=== PATIENT | female | born 1960 | race Caucasian/White ===

== ENCOUNTER 2018-10-03 12:11 | Emergency (ER) | payer BC ==
[~2018-10-03] VITALS: Ht 160 cm; Wt 65.8 kg
[~2018-10-03 12:11] MED LIST: CYCL-97 PO; DULO60CA6 PO; HYDR-3720 PO; NAPR220C11 PO; TRAM100T2 PO
--- OUTSIDE RECORDS SUMMARY | 2018-10-03 12:17 | XMS REPORT | Continuity of Care Document ---
Author Organization Unknown Address Unknown Allergies Active Description Code Type Severity Reaction Onset Reported/Identified Relationship to Patient Clinical Status Yes Bactrim Drug N/A Nausea Yes PriLOSEC Drug N/A BRITTON - Headache Medications Medication Packaging Start Date Stop Date Route Dosage Sig DULoxetine 05/12/2018 PO Cymbalta traMADol 05/12/2018 PO 50 mg / 1 tab ibuprofen 05/12/2018 ibuprofen Problems Date Dx Coded Attending Type Code Diagnosis Diagnosed By 05/12/2018 Paula Pinzon Final M54.5 Low back pain Procedures There is no data. Results There is no data. Encounters ACCT No. Visit Date/Time Discharge Status Pt. Type Provider Facility Loc./Unit Complaint [id number] 06/03/2018 13:29:38 06/03/2018 23:59:59 [facility] Outpatient Fadi Griffith [facility] MRI F/U-Discuss surgery [id number] 06/02/2018 13:55:00 06/02/2018 23:59:59 [facility] [id number] 05/25/2018 00:00:00 05/25/2018 23:59:59 [facility] Outpatient Scanned Documents [id number] 05/12/2018 10:24:52 05/12/2018 23:59:59 [facility] Outpatient Fadi Griffith [facility] 2nd opinion - foot drop/IMAGES FIRST [id number] 05/11/2018 17:37:00 05/11/2018 23:59:59 [facility] Outpatient [id number] 05/04/2018 00:00:00 05/04/2018 23:59:59 [facility] Outpatient Scanned Documents [id number] 05/12/2018 10:03:00 05/12/2018 23:59:00 [facility] Outpatient Paula Pinzon [facility] RAD SPINE XRAY [id number] 08/19/2018 10:00:00 08/19/2018 23:59:59 [facility] Outpatient ODILIA WHITE [facility]
--- NOTE | 2018-10-03 12:38 | ED Lower Extremity ---
General Chief Complaint: Lower Extremity Stated Complaint: FALL - LT FOOT INJURY Nursing Triage Note: PT REPORTS SHE STEPPED WRONG LAST PM AT HER SONS CONCERT AND NOW HER LEFT FOOT HURTS TO MOVE OR AMBULATE. NO SIGNIFICANT SWELLING NOTED Nursing Sepsis Screen: No Definite Risk Source: patient Exam Limitations: no limitations History of Present Illness Date Seen by Provider: Oct 03, 2018 Time Seen by Provider: 12:35 Initial Comments Twisted left foot when she stepped wrong last night. Complains of pain swelling and tenderness. Hurts to bear weight. Allergies and Home Medications Allergies Coded Allergies: omeprazole (Unverified Allergy, HEAD ACHE, 05/12/12) omeprazole magnesium (Unverified Allergy, HEAD ACHE, 05/12/12) Home Medications Cyclobenzaprine Hcl 10 Mg Tablet, 1 TAB PO TID PRN, (Reported) Duloxetine Hcl 60 Mg Capsule.dr, 1 EACH PO DAILY, (Reported) Hydrocodone Bit/Acetaminophen 1 Ea Tab, 1-2 EA PO Q4HR PRN, (Reported) Naproxen Sodium 220 Mg Capsule, 220 MG PO DAILY, (Reported) DO NOT RESUME UNTIL 05/27/12 Tramadol Hcl 100 Mg Tab.sr.24h, 100 MG PO NEEDED, (Reported) FOR PAIN Patient Home Medication List Home Medication List Reviewed: Yes Review of Systems Constitutional: no symptoms reported Musculoskeletal: joint pain Skin: no symptoms reported Past Xzcolfm-Qgafwh-Qhndzm Hx Patient Social History Recent Foreign Travel: No Contact w/Someone Who Travel: No Recent Infectious Disease Expo: No Physical Abuse: No Sexual Abuse: No Mistreated: No Fear: No Past Medical History Reproductive Disorders: No Physical Exam Vital Signs Vital Signs - First Documented 10/03/18 12:21 Temp 99.0 Pulse 89 B/P (MAP) 137/81 (99) Capillary Refill : Less Than 3 Seconds Height, Weight, BMI Height: 5'3.00" Weight: 145lbs. oz. [id number]; BMI Method:Stated General Appearance: WD/WN, no apparent distress Neck: supple Cardiovascular: regular rate, rhythm Respiratory: lungs clear Feet: left foot pain, left foot soft tissue tenderness (tender swollen over dorsuml aspect of left foot. No obvious deformity. unable to bear weight) Neurologic/Psychiatric: alert, normal mood/affect Skin: normal color, warm/dry Progress/Results/Core Measures Results/Orders My Orders Orders - HENRY ROMEO MD Foot 3 View Left (10/03/18 12:26) Vital Signs/I&O 10/03/18 12:21 Temp 99.0 Pulse 89 B/P (MAP) 137/81 (99) Blood Pressure Mean: 99 Progress Progress Note : Time: 12:59 Progress Note X-ray reviewed. Concerns over Lisfranc joint injury. Advised follow-up with orthopedist as soon as possible. No weight bearing. Departure Impression Primary Impression: Metatarsal fracture Disposition: HOME, SELF-CARE Condition: Stable Departure-Patient Inst. Decision time for Depature: 12:37 Referrals: ODILIA WHITE MD (PCP) Primary Care Physician Patient Instructions: Foot Fracture (DC) Add. Discharge Instructions: No weightbearing. Instructions. Keep foot elevated as much as possible. See orthopedist this week for follow-up. Take your x-ray and report with you. All discharge instructions reviewed with patient and/or family. Voiced understanding. HENRY ROMEO MD Oct 03, 2018 12:37
--- NOTE | 2018-10-03 12:47 | Diagnostic Imaging Report ---
Clinical indication: Patient stepped wrong last night at her son's concert and now left foot hurts to move and ambulate. Exam: X-ray of the left foot, 3 views. Comparison: None. Findings: There are nondisplaced transverse fractures involving the proximal metaphysis of the third and fourth metatarsal bones. There may be mildly displaced fracture fragment dorsally on the lateral view. There is no other fracture or dislocation. Remainder of the left foot is unremarkable. Impression: There are fractures of the proximal metaphysis of the third and fourth metatarsal bones. Dictated by: Dictated on workstation # [id number]
[2018-10-03 13:03] VITALS: BP 121/62
== END 2018-10-03 13:16 | disposition home or self-care (01) ==
LOC: EDUNIT# 12:11 → ER FS 12:13 → ER 13:16
DX: S92.332A Displaced fracture of third metatarsal bone, left foot, initial encounter for closed fracture (principal); S92.342A Displaced fracture of fourth metatarsal bone, left foot, initial encounter for closed fracture; Z88.8 Allergy status to other drugs, medicaments and biological substances; X58.XXXA Exposure to other specified factors, initial encounter
CPT/HCPCS: 73630

== ENCOUNTER → 2018-10-13 | Outpatient (CLI) | payer BC ==
--- NOTE | 2018-10-13 11:16 | Diagnostic Imaging Report ---
PROCEDURE: CT left lower extremity without contrast. TECHNIQUE: Multiple contiguous axial images were obtained through the left lower extremity without the use of intravenous contrast. Sagittal and coronal reformations were then performed. Auto Exposure Controls were utilized during the CT exam to meet ALARA standards for radiation dose reduction. INDICATION: Nondisplaced fracture of third and fourth metatarsals. There are no prior CT examinations available for comparison. FINDINGS: The left foot exam of 10/03/2018 noted fractures of the proximal metaphyses of the third and fourth metatarsals. On this study, the fractures are again evident. The sagittal images do show that the fractures of the base of the third and fourth metatarsals are slightly displaced. There is also a nondisplaced fracture of the medial cortex of the base of second metatarsal. There also appears to be a nondisplaced fracture of the lateral aspect of the base of first metatarsal along the plantar surface. In addition to the fractures of the metatarsals there are do appear to be a few small avulsion fractures along the lateral aspect of the first cuneiform (axial images 104-115 of 213). These minute fracture fragments are in the region of the attachment of the Lisfranc ligament. The ligament itself is not well visualized. However, the avulsion fractures in this area do suggest that the attachment of the ligament is probably partially torn. The Lisfranc joint itself seems to be fairly well-maintained. No other fracture or acute bony abnormality identified. Is identified. There is no sign of a dislocation either. There is soft tissue edema along the dorsum of the forefoot in the region of the fractures. IMPRESSION: 1. There are slightly displaced fractures of the bases of the third and fourth metatarsals and nondisplaced fractures of the bases of the second and first metatarsals. 2. There also appear to be small avulsion fractures along the lateral aspect of the first cuneiform. These fractures are in the region of the attachment of the Lisfranc ligament. The ligament itself is not well visualized but the avulsion fractures in this area are indirect evidence that the ligament is probably partially torn. If further imaging is desired, then MRI would be recommended. 3. There is no acute bony abnormality noted otherwise. 4. These results were discussed with Dr. Silva. Dictated by: Dictated on workstation # [id number]
== END ==
LOC: RAD FS 09:59
PROVIDERS: ATTEND Nurse Practitioner
DX: S92.325A Nondisplaced fracture of second metatarsal bone, left foot, initial encounter for closed fracture (principal); S92.315A Nondisplaced fracture of first metatarsal bone, left foot, initial encounter for closed fracture; S92.342A Displaced fracture of fourth metatarsal bone, left foot, initial encounter for closed fracture; S92.335A Nondisplaced fracture of third metatarsal bone, left foot, initial encounter for closed fracture
CPT/HCPCS: 73700

== ENCOUNTER → 2020-01-06 | Outpatient (CLI) | payer BC ==
--- NOTE | 2020-01-06 10:10 | Diagnostic Imaging Report ---
PROCEDURE: MRI lumbar spine. TECHNIQUE: Multiplanar, multisequence MRI of the lumbar spine was performed without contrast. DATE: January 06, 2020. COMPARISON: Lumbar spine radiographs May 19, 2012. INDICATION: 59-year-old female, increasing low back pain. FINDINGS: S1-S2 is labeled as having a rudimentary disc. If spinal intervention is to be performed in the future, recommend careful correlation with levels. There is posterior spinal fusion hardware spanning L4-L5 with disc spacer material. There is some associated hardware related artifact. There is grade 1 anterolisthesis of L3 on L4 which measures 6.6 mm. There is no evidence of a diffuse marrow infiltrating or replacing process. There is mild to moderate disc height loss at L3-L4. There is severe disc height loss at L4-L5. There are Modic endplate degenerative changes at both these levels although more notable at L5-S1. There is a superior endplate Schmorl's node of T12. There is no acute compression deformity or other acute fracture. There is no focal concerning bone lesion. The visualized cord and conus medullaris is unremarkable and terminates at the L2-L3 level. At T11-T12, there is a mild diffuse disc bulge without foraminal or spinal stenosis. L1-L2: There is no disc bulge. The facet joints and ligamentum flavum are unremarkable. There is no foraminal narrowing. There is no spinal canal stenosis. L2-L3: There is mild diffuse disc bulge. The facet joints and ligamentum flavum are unremarkable. There is mild bilateral foraminal narrowing. There is no spinal canal stenosis. L3-L4: There is diffuse disc bulge. There are advanced bilateral facet degenerative changes with ligamentum flavum hypertrophy. There is severe narrowing of the right lateral recess and moderate narrowing of the left lateral recess. There is moderate bilateral foraminal narrowing. There is severe spinal canal stenosis. L4-L5: There is no disc bulge. There are bilateral laminectomy changes. There is no foraminal narrowing. There is no spinal canal stenosis. L5-S1: There is diffuse disc bulge. There are bilateral facet degenerative changes without prominent ligamentum flavum hypertrophy. There is severe right and mild to moderate left foraminal narrowing. There is no high-grade spinal canal stenosis. IMPRESSION: 1. S1-S2 is labeled as having a rudimentary disc. If spinal intervention is to be performed in the future, recommend careful correlation with levels. 2. Postoperative changes spanning L4-L5. 3. Disc and facet degenerative changes of the lumbar spine as described in detail level by level above. Findings are most notable at L3-L4, L5-S1, and L2-L3. Dictated by: Dictated on workstation # [id number]
== END ==
LOC: RAD 08:57
PROVIDERS: ATTEND Family Medicine
DX: M51.17 Intervertebral disc disorders with radiculopathy, lumbosacral region (principal); M47.27 Other spondylosis with radiculopathy, lumbosacral region; M48.07 Spinal stenosis, lumbosacral region; M43.16 Spondylolisthesis, lumbar region; M51.44 Schmorl's nodes, thoracic region; Z98.1 Arthrodesis status
CPT/HCPCS: 72148

== ENCOUNTER 2020-03-15 21:20 | Emergency (ER) | payer BC ==
[~2020-03-15] VITALS: Ht 157.4 cm; Wt 66.5 kg
[2020-03-15 21:51] LABS: HEMATOCRIT 41 % (35-52); HEMOGLOBIN 14.4 G/DL (11.5-16.0); MEAN CORPUSCULAR HEMOGLOBIN 31 PG (25-34); MEAN CORPUSCULAR VOLUME 90 FL (80-99); WHITE BLOOD COUNT 9.1 10^3/uL (4.3-11.0)
[2020-03-15 21:52] LABS: BASOPHILS % (AUTO) 0 % (0-10); EOSINOPHILS % (AUTO) 0 % (0-10); LYMPHOCYTES % (AUTO) 8 % (12-44); MEAN CORPUSCULAR HGB CONC 35 G/DL (32-36); MEAN PLATELET VOLUME 9.8 FL (7.4-10.4); MONOCYTES % (AUTO) 1 % (0-12); PLATELET COUNT 350 10^3/uL (130-400)
--- NOTE | 2020-03-15 21:52 | ED Chest Pain ---
General Stated Complaint: SOA,HIGH BLOOD PRESSURE/HEARTRATE Source: patient History of Present Illness Date Seen by Provider: Mar 15, 2020 Time Seen by Provider: 21:37 Initial Comments 59-year-old female presents with intermittent shortness of air multiple somatic complaints occurring over the past several days. Tonight concern of rapid heart rate as well as increased blood pressure. Saw her PCP today, Dr. Valdez for possible temporal arteritis or shingles. 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 She does not have a rash but is having intermittent scalp tingling with no localized area, but occurring in the migratory pattern. Did have some tenderness of her left temporal area, which is calm and gone as well. Currently not having any of those symptoms. Denies chest pain or shortness of air on arrival, but is having rapid heart rate as well as some anxiety. She did take a Xanax 0.25 about 9 p.m. prior to arrival. She also filled and took 40mg of her prednisone at 4 pm for the presumed herpes zoster (although she has no rash), she did not fill the prescription for Zostrix. She denies any eye pain or visual change. She denies any jaw pain or claudication. Allergies and Home Medications Allergies Coded Allergies: omeprazole (Unverified Allergy, HEAD ACHE, 05/12/12) omeprazole magnesium (Unverified Allergy, HEAD ACHE, 05/12/12) Home Medications Cyclobenzaprine Hcl 10 Mg Tablet, 1 TAB PO TID PRN, (Reported) Duloxetine Hcl 60 Mg Capsule.dr, 1 EACH PO DAILY, (Reported) Hydrocodone Bit/Acetaminophen 1 Ea Tab, 1-2 EA PO Q4HR PRN, (Reported) Naproxen Sodium 220 Mg Capsule, 220 MG PO DAILY, (Reported) DO NOT RESUME UNTIL 05/27/12 Tramadol Hcl 100 Mg Tab.sr.24h, 100 MG PO NEEDED, (Reported) FOR PAIN Patient Home Medication List Home Medication List Reviewed: Yes Review of Systems Review of Systems Constitutional: No dizziness, No fever, No malaise, No weakness Respiratory: Denies Cough, Denies Orthopnea; Shortness of Air (intermittent, mainly w exertion); Denies Stridor, Denies Wheezing Cardiovascular: See HPI; Denies Chest Pain, Denies Edema, Denies Lightheadedness; Palpitations; Denies Syncope Gastrointestinal: No Symptoms Reported; Denies Nausea, Denies Poor Fluid Intake, Denies Vomiting Musculoskeletal: No back pain, No joint pain Skin: No change in color, No rash Psychiatric/Neurological: Anxiety; Denies Depressed, Denies Headache, Denies Numbness; Paresthesia (of scalp) Past Jpisznz-Ihjhxr-Uncmrg Hx Past Med/Social Hx: Reviewed Nursing Past Med/Soc Hx Patient Social History Alcohol Use: Regular Use 2nd Hand Smoke Exposure: No Recent Foreign Travel: No Contact w/Someone Who Travel: No Recent Hopitalizations: No Seasonal Allergies Seasonal Allergies: No Past Medical History Surgeries: Yes Gallbladder, Hysterectomy, Orthopedic Respiratory: No Cardiac: No Neurological: No Reproductive Disorders: No Genitourinary: No Gastrointestinal: No Musculoskeletal: Yes Chronic Back Pain Endocrine: No HEENT: No Cancer: No Psychosocial: Yes Anxiety, Depression Integumentary: No Blood Disorders: No Physical Exam Vital Signs Vital Signs - First Documented 03/15/20 21:30 Temp 36.6 Pulse 155 Resp 14 B/P (MAP) 160/116 (131) Pulse Ox 98 Capillary Refill : Height, Weight, BMI Height: 5'3.00" Weight: 145lbs. oz. 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 Skin: Normal Color, Warm/Dry Progress/Results/Core Measures Results/Orders Lab Results Laboratory Tests Test 03/15/20 21:35 Range/Units White Blood Count 9.1 4.3-11.0 10^3/uL Red Blood Count 4.62 4.35-5.85 10^6/uL Hemoglobin 14.4 11.5-16.0 G/DL Hematocrit 41 35-52 % Mean Corpuscular Volume 90 80-99 FL Mean Corpuscular Hemoglobin 31 25-34 PG Mean Corpuscular Hemoglobin Concent 35 32-36 G/DL Red Cell Distribution Width 11.9 10.0-14.5 % Platelet Count 350 130-400 10^3/uL Mean Platelet Volume 9.8 7.4-10.4 FL Immature Granulocyte % (Auto) 0 % Neutrophils (%) (Auto) 91 H 42-75 % Lymphocytes (%) (Auto) 8 L 12-44 % Monocytes (%) (Auto) 1 0-12 % Eosinophils (%) (Auto) 0 0-10 % Basophils (%) (Auto) 0 0-10 % Neutrophils # (Auto) 8.3 H 1.8-7.8 X 10^3 Lymphocytes # (Auto) 0.8 L 1.0-4.0 X 10^3 Monocytes # (Auto) 0.1 0.0-1.0 X 10^3 Eosinophils # (Auto) 0.0 0.0-0.3 10^3/uL Basophils # (Auto) 0.0 0.0-0.1 10^3/uL Immature Granulocyte # (Auto) 0.0 0.0-0.1 10^3/uL Neutrophils % (Manual) 92 % Lymphocytes % (Manual) 6 % Monocytes % (Manual) 1 % Eosinophils % (Manual) 0 % Basophils % (Manual) 0 % Band Neutrophils 0 % Atypical Lymphocytes 1 % Sodium Level 137 135-145 MMOL/L Potassium Level 4.1 3.6-5.0 MMOL/L Chloride Level 100 98-107 MMOL/L Carbon Dioxide Level 19 L 21-32 MMOL/L Anion Gap 18 H 5-14 MMOL/L Blood Urea Nitrogen 9 7-18 MG/DL Creatinine 0.62 0.60-1.30 MG/DL Estimat Glomerular Filtration Rate > 60 BUN/Creatinine Ratio 15 Glucose Level 233 H 70-105 MG/DL Calcium Level 9.9 8.5-10.1 MG/DL Corrected Calcium 8.5-10.1 MG/DL Total Bilirubin 0.3 0.1-1.0 MG/DL Aspartate Amino Transf (AST/SGOT) 18 5-34 U/L Alanine Aminotransferase (ALT/SGPT) 12 0-55 U/L Alkaline Phosphatase 78 40-136 U/L Troponin I < 0.30 <0.30 NG/ML Total Protein 8.3 H 6.4-8.2 GM/DL Albumin 5.1 H 3.2-4.5 GM/DL My Orders Orders - ROVENSTINE,FREDI Lopez DO Cbc With Automated Diff (03/15/20 21:36) Comprehensive Metabolic Panel (03/15/20 21:36) Troponin I Fs (03/15/20 21:36) Urinalysis (03/15/20 21:36) Ed Iv/Invasive Line Start (03/15/20 21:36) Chest 1 View Ap/Pa Only (03/15/20 21:36) Ekg Tracing (03/15/20 21:36) Manual Differential (03/15/20 21:35) Ns Iv 1000 Ml (Sodium Chloride 0.9%) (03/15/20 22:00) Metoprolol Tartrate Injection (Lopressor (03/15/20 22:00) Medications Given in ED Current Medications Medications Dose Ordered Sig/Jenni Route Start Time Stop Time Status Last Admin Dose Admin Metoprolol Tartrate 5 mg ONCE ONCE IV 03/15/20 22:00 03/15/20 22:01 DC 03/15/20 22:02 5 MG Vital Signs/I&O 03/15/20 21:30 Temp 36.6 Pulse 155 Resp 14 B/P (MAP) 160/116 (131) Pulse Ox 98 Progress Progress Note : Progress Note Patient feeling much better with symptoms resolved after a liter of normal saline and 5 mg metoprolol IV. Denies chest pain or shortness of air. States she is feeling better and wants to go home. Discussed anxiety, stress and elevated heart rate and possible effect of taking prednisone late this afternoon. Advised taking Benadryl or an extra Xanax prior to bed tonight if symptoms should recur. Also advised calling her doctor in 2-3 days if her symptoms are continuing intermittently without resolution. Initial ECG Impression Date: Mar 15, 2020 Initial ECG Impression Time: 21:35 Initial ECG Rate: 135 Initial ECG Rhythm: S.Tach Initial ECG Intervals: Normal Initial ECG Impression: Normal Diagnostic Imaging Diagonstic Imaging: Xray Plain Films/CT/US/NM/MRI: chest Comments Date of Exam:03/15/20 CHEST 1 VIEW AP/PA ONLY EXAMINATION: Chest radiograph, portable AP view. DATE: 03/15/2020 9:52 PM hours. INDICATION: 59-year-old female, tachycardia. COMPARISON: None. FINDINGS: Heart size and mediastinal contours are unremarkable. There is no identified pneumothorax. There is no large pleural effusion. There is no identified focal airspace consolidation. IMPRESSION: No identified acute cardiopulmonary abnormality. Dictated on workstation # [id number] Dict: 03/15/202199 Trans: 03/15/202201 CV [id number] Interpreted by: ILDEFONSO ROUSE MD Electronically signed by: Departure Impression Primary Impression: Sinus tachycardia Additional Impression: Anxiety Disposition: 01 HOME, SELF-CARE Condition: Improved Departure-Patient Inst. Decision time for Depature: 22:14 Referrals: ODILIA VALDEZ MD (PCP/Family) Primary Care Physician Patient Instructions: Sinus Tachycardia (DC), Palpitations (DC) Add. Discharge Instructions: Follow up with Dr Valdez in 2 to 3 days if you are still feeling occasional shortness of air or rapid heart rate. Also, take the Acyclovir and see an Eye Doctor if you develop a "shingles" rash on your face. FREDI SAEZ DO Mar 15, 2020 21:52
[2020-03-15 21:53] LABS: LYMPHOCYTES # (AUTO) 0.8 X 10^3 (1.0-4.0); MONOCYTES # (AUTO) 0.1 X 10^3 (0.0-1.0); NEUTROPHILS # (AUTO) 8.3 X 10^3 (1.8-7.8); NEUTROPHILS % (AUTO) 91 % (42-75)
[2020-03-15] MEDS ORDERED: meTOprolol 5 MG/5 ML (LOPRESSOR) VIAL IV ONE (22:00)
[2020-03-15] MEDS ORDERED: NS IV 1000 ML 1,000 ML IV SCH (22:00)
--- NOTE | 2020-03-15 22:02 | Diagnostic Imaging Report ---
EXAMINATION: Chest radiograph, portable AP view. DATE: 03/15/2020 9:52 PM hours. INDICATION: 59-year-old female, tachycardia. COMPARISON: None. FINDINGS: Heart size and mediastinal contours are unremarkable. There is no identified pneumothorax. There is no large pleural effusion. There is no identified focal airspace consolidation. IMPRESSION: No identified acute cardiopulmonary abnormality. Dictated by: Dictated on workstation # [id number]
[2020-03-15 22:05] LABS: ALKALINE PHOSPHATASE 78 U/L (40-136); BILIRUBIN,TOTAL 0.3 MG/DL (0.1-1.0); BUN/CREATININE RATIO 15; CALCIUM 9.9 MG/DL (8.5-10.1); CARBON DIOXIDE 19 MMOL/L (21-32); CHLORIDE 100 MMOL/L (98-107); CREATININE SERUM 0.62 MG/DL (0.60-1.30); GFR ESTIMATED > 60; GLUCOSE 233 MG/DL (70-105); POTASSIUM 4.1 MMOL/L (3.6-5.0); SODIUM 137 MMOL/L (135-145)
[2020-03-15 22:06] LABS: ALANINE AMINOTRANSFERASE 12 U/L (0-55); ALBUMIN 5.1 GM/DL (3.2-4.5); BAND NEUTROPHILS 0 %; BASOPHILS % (MANUAL) 0 %; EOSINOPHILS % (MANUAL) 0 %; LYMPHOCYTES % (MANUAL) 6 %; MONOCYTES % (MANUAL) 1 %; NEUTROPHILS % (MANUAL) 92 %; TOTAL PROTEIN 8.3 GM/DL (6.4-8.2)
[2020-03-15 22:07] LABS: ATYPICAL LYMPHOCYTES 1 %
[2020-03-15 22:22] VITALS: BP 140/82
[2020-03-15 22:38] VITALS: BP 118/75
== END 2020-03-15 22:38 | disposition home or self-care (01) ==
LOC: EDUNIT# 21:20 → ER FS 21:22
DX: F41.9 Anxiety disorder, unspecified (principal); R20.2 Paresthesia of skin; Z88.8 Allergy status to other drugs, medicaments and biological substances
CPT/HCPCS: 36415; 71045; 80053; 84484; 85007; 85027

== ENCOUNTER → 2020-10-18 | Outpatient (CLI) | payer BC ==
--- NOTE | 2020-10-18 11:00 | Diagnostic Imaging Report ---
PROCEDURE: MRI lumbar spine. TECHNIQUE: Multiplanar, multisequence MRI of the lumbar spine was performed without contrast. DATE: October 18, 2020. COMPARISON: MR lumbar spine January 06, 2020. INDICATION: 60-year-old female, increasing low back pain. Spinal stenosis. FINDINGS: There is transitional lumbosacral anatomy. L5 is labeled as partially sacralized. Posterior spinal fusion hardware is labeled at the level of L3-L4 with disc spacer material at this level. There is grade 1 anterolisthesis of L2 on L3 measuring 5.5 mm. This is unchanged since January 06, 2020. There is no evidence of a diffuse marrow infiltrating or replacing process. There is a superior endplate concavity and Schmorl's node of T11. There is no acute compression fracture. The visualized cord and conus medullaris is unremarkable and terminates at the L1-L2 level. There is moderate disc height loss at L2-L3. There is moderate to severe disc height loss at L4-L5. There are associated endplate degenerative related changes at both levels. L1-L2: There is mild diffuse disc bulge. The facet joints and ligamentum flavum are unremarkable. There is mild bilateral foraminal narrowing. There is no spinal canal stenosis. L2-L3: There is diffuse disc bulge. There is moderate to severe narrowing of the bilateral lateral recesses. There are bilateral facet degenerative changes. There is moderate bilateral foraminal narrowing. There is severe spinal canal stenosis. L3-L4: There is no disc bulge. There are bilateral laminectomy changes. There is no foraminal narrowing. There is no spinal canal stenosis. L4-L5: There is diffuse disc bulge eccentric to the right. There is mild narrowing of the right lateral recess. There are right greater than left facet degenerative changes. There is a trace right facet joint effusion. There is severe right and mild left foraminal narrowing. There is no spinal canal stenosis. L5-S1: There is no disc bulge. The facet joints and ligamentum flavum are unremarkable. There is no foraminal narrowing. There is no spinal canal stenosis. IMPRESSION: 1. Transitional lumbosacral anatomy. L5 is labeled as partially sacralized. The posterior spinal fusion hardware is labeled at the level of L3-L4. If further spinal intervention is performed, recommend careful correlation with levels. 2. Disc and facet degenerative changes, most notable at L2-L3 with grade 1 anterolisthesis of L2 on L3. There is moderate to severe narrowing of the bilateral lateral recesses, moderate bilateral foraminal narrowing, and severe spinal stenosis at L2-L3. 3. Additional degenerative related findings as described level by level above. 4. Findings are relatively similar to the prior MRI lumbar spine on January 06, 2020. Dictated by: Dictated on workstation # [id number]
== END ==
LOC: RAD 09:55
PROVIDERS: ATTEND Family Medicine
DX: M48.061 Spinal stenosis, lumbar region without neurogenic claudication (principal); M51.16 Intervertebral disc disorders with radiculopathy, lumbar region; M47.26 Other spondylosis with radiculopathy, lumbar region; M43.16 Spondylolisthesis, lumbar region; M51.46 Schmorl's nodes, lumbar region; Z98.1 Arthrodesis status
CPT/HCPCS: 72148

== ENCOUNTER 2021-02-16 10:15 | Emergency (ER) | payer BC ==
[~2021-02-16] VITALS: Ht 157.5 cm; Wt 66.9 kg
--- OUTSIDE RECORDS SUMMARY | 2021-02-16 10:21 | XMS REPORT | Continuity of Care Document ---
Author Author [facility] Organization [facility] Address Unknown Phone Unavailable Care Team Providers Care Rn Clinician Name Role Phone Clayton Valdez PCP Encounter Hospital [facility] [phone] Date(s): 01/29/21 - 01/30/21 [facility] [address] [place] [address]- [phone] Discharge Disposition: Home Allergies, Adverse Reactions, Alerts Substance Reaction Severity Status Bactrim Nausea Active PriLOSEC BRITTON - Headache Active Assessment and Plan No data available for this section Functional Status No data available for this section Immunizations No data available for this section Medications amoxicillin 0 Refill(s), Substitution Permitted, 145.28 Start Date: 11/30/20 Status: Ordered Cymbalta 30 mg, PO, qDay Start Date: 05/12/18 Status: Ordered ibuprofen as needed for pain Start Date: 05/12/18 Status: Ordered Tylenol PO, 145.28 Start Date: 11/30/20 Status: Ordered Ultram 50 mg oral tablet 50 mg = 1 tab, PO, q4hr, as needed for pain Start Date: 05/12/18 Status: Ordered Mental Status No data available for this section Problem List Condition Effective Dates Status Health Status Informan t Overweight(Confirmed Active ) Procedures Procedure Date Related Diagnosis Body Site Status Microdiscectomy 2013 Completed Microdiscectomy1 2012 Completed Fusion2 2011 Completed 1lumbar 2Lumbar Results No data available for this section Vital Signs No data available for this section Social History Social History Type Response Smoking Status Never smoker entered on: 11/30/20 Sex Female Health Concerns No data available for this section Medical Equipment No data available for this section Hospital Discharge Instructions No data available for this section Goals No data available for this section Reason for Referral No data available for this section Hospital Course No data available for this section
--- OUTSIDE RECORDS SUMMARY | 2021-02-16 10:21 | XMS REPORT | Clinical Summary ---
Author Author [facility] Organization [facility] Address Unknown Phone Unavailable Care Team Providers Care Chemist Steroids Name Role Phone Shon Li MD PCP Allergies Not on File Medications Not on file Active Problems Not on file Social History Date Tobacco Use Types Packs/Day Years Used Never Assessed Sex Assigned at Date Recorded Not on file Last Filed Vital Signs Not on file Plan of Treatment Health Maintenance Due Date Last Done Comments Td/Tdap# 1960 Cervical Cancer Screening 1980 via Pap Smear Zoster Vaccine# (1 of 2) 2009 Influenza Vaccine (#1) 2021 Pneumococcal Vaccine: Aged Out No longer eligib le based on patient's age to Pediatrics (0 to 5 Years) complete this topic and At-Risk Patients (6 to 64 Years) Results Not on filefrom Last 3 Months Advance Directives For more information, please contact: [phone] Patient Bundle Sorter Explanation Type Date Recorded Advance Directives and Living Will Power of Golf Course Manager
--- NOTE | 2021-02-16 11:03 | ED General ---
General Chief Complaint: General Problems/Pain Stated Complaint: HTN; SOB; TACHY; HEADACHE Source of Information: Patient History of Present Illness Date Seen by Provider: Feb 16, 2021 Time Seen by Provider: 10:18 Initial Comments 60 yo female presents by private vehicle with complaint of over 2 weeks of heart racing, blood pressure elevated, intermittent abdominal cramping with diarrhea. She is concerned that she has residual effects from a possible Covid infection from last February. She states that she was sick with some similar type symptoms in February 2020 but did not have a Covid test then. She has had a negative Covid test in the last 2 weeks during the symptoms. She also found a lot of mold and black-colored mold in her air conditioner window unit and was concerned that she may have black mold poisoning. She has been having episodes of feeling flushed and getting her heart racing especially with minimal exertion. She does have anxiety and feels that that may be playing some role but also feels that she has either COVID post infection complications or poisoning from Black Mold in her window AC unit. She reports Dr. Valdez had told her she had Carcinoid Syndrome or Pheochromocytoma but then had a normal 24 hour urine test. Pt reports she wanted to get in with an Internal Medicine doctor but Dr. Mcfarlane and Dr. Loaiza were not available so she came to the ED. she felt some of her symptoms had been going on since last February but worse in last 2 weeks. Associated Systoms: No Chest Pain, No Cough; Diaphoresis, Headaches, Malaise, Shortness of Air Allergies and Home Medications Allergies Coded Allergies: omeprazole (Unverified Allergy, Unknown, HEAD ACHE, 10/18/20) omeprazole magnesium (Unverified Allergy, Unknown, HEAD ACHE, 10/18/20) sulfamethoxazole (Verified Adverse Reaction, Mild, nausea/vomiting, 02/16/21) trimethoprim (Verified Adverse Reaction, Mild, nausea/vomiting, 02/16/21) Home Medications Alprazolam 0.5 Mg Tablet, 0.5 MG PO BID PRN for ANXIETY Prescribed by: QUANG HOANG on 02/16/21 1310 Cyclobenzaprine Hcl 10 Mg Tablet, 1 TAB PO TID PRN, (Reported) Duloxetine Hcl 60 Mg Capsule.dr, 1 EACH PO DAILY, (Reported) Hydrocodone Bit/Acetaminophen 1 Ea Tab, 1-2 EA PO Q4HR PRN, (Reported) Naproxen Sodium 220 Mg Capsule, 220 MG PO DAILY, (Reported) DO NOT RESUME UNTIL 05/27/12 Tramadol Hcl 100 Mg Tab.sr.24h, 100 MG PO NEEDED, (Reported) FOR PAIN Patient Home Medication List Home Medication List Reviewed: Yes Review of Systems Review of Systems Constitutional: see HPI EENTM: no symptoms reported Respiratory: see HPI Cardiovascular: see HPI Gastrointestinal: see HPI Genitourinary: no symptoms reported Musculoskeletal: no symptoms reported Skin: No rash Psychiatric/Neurological: Headache; Denies Numbness, Denies Paresthesia Hematologic/Lymphatic: Denies Blood Clots Past Uhbajza-Traqdc-Jgelkh Hx Seasonal Allergies Seasonal Allergies: No Past Medical History Surgeries: Yes Gallbladder, Hysterectomy, Orthopedic Respiratory: No Cardiac: No Neurological: No Reproductive Disorders: No Genitourinary: No Gastrointestinal: No Musculoskeletal: Yes Chronic Back Pain Endocrine: No HEENT: No Cancer: No Psychosocial: Yes Anxiety, Depression Integumentary: No Blood Disorders: No Physical Exam Vital Signs Vital Signs - First Documented 02/16/21 10:21 Temp 36.4 Pulse 127 Resp 20 B/P (MAP) 199/99 (132) Pulse Ox 100 O2 Delivery Room Air Capillary Refill : Height, Weight, BMI Height: 5'3.00" Weight: 145lbs. oz. 65.874509lu; 26.00 BMI Method:Stated General Appearance: WD/WN, Anxious HEENT: PERRL/EOMI, Pharynx Normal Neck: Full Range of Motion, Normal Inspection, Non Tender, Supple Respiratory: Chest Non Tender, Lungs Clear, Normal Breath Sounds, No Accessory Muscle Use, No Respiratory Distress Cardiovascular: Normal Peripheral Pulses, Tachycardia Gastrointestinal: Normal Bowel Sounds, No Pulsatile Mass, Non Tender, Soft Rectal: Deferred Extremity: Normal Capillary Refill, Normal Inspection, No Pedal Edema Neurologic/Psychiatric: Alert, Oriented x3, No Motor/Sensory Deficits, Normal Mood/Affect, veterinary manager II-XII Norm as Tested Skin: Normal Color, Warm/Dry Focused Exam Lactate Level 02/16/21 10:45: Lactic Acid Level 1.02 Lactic Acid Level Laboratory Tests Test 02/16/21 10:45 Lactic Acid Level 1.02 MMOL/L (0.50-2.00) Progress/Results/Core Measures Suspected Sepsis SIRS Temperature: Pulse: Respiratory Rate: Laboratory Tests 02/16/21 10:45: White Blood Count 5.3 Blood Pressure / Mean: 02/16/21 10:45: Lactic Acid Level 1.02 Laboratory Tests 02/16/21 10:45: Creatinine 0.61, INR Comment 1.0, Platelet Count 321, Total Bilirubin 0.3 Results/Orders Lab Results Laboratory Tests Test 02/16/21 10:45 02/16/21 11:11 Range/Units White Blood Count 5.3 4.3-11.0 10^3/uL Red Blood Count 4.40 3.80-5.11 10^6/uL Hemoglobin 13.4 11.5-16.0 g/dL Hematocrit 39 35-52 % Mean Corpuscular Volume 89 80-99 fL Mean Corpuscular Hemoglobin 30 25-34 pg Mean Corpuscular Hemoglobin Concent 34 32-36 g/dL Red Cell Distribution Width 12.2 10.0-14.5 % Platelet Count 321 130-400 10^3/uL Mean Platelet Volume 9.8 9.0-12.2 fL Immature Granulocyte % (Auto) 0 % Neutrophils (%) (Auto) 64 42-75 % Lymphocytes (%) (Auto) 27 12-44 % Monocytes (%) (Auto) 8 0-12 % Eosinophils (%) (Auto) 1 0-10 % Basophils (%) (Auto) 0 0-10 % Neutrophils # (Auto) 3.4 1.8-7.8 X 10^3 Lymphocytes # (Auto) 1.4 1.0-4.0 X 10^3 Monocytes # (Auto) 0.4 0.0-1.0 X 10^3 Eosinophils # (Auto) 0.0 0.0-0.3 10^3/uL Basophils # (Auto) 0.0 0.0-0.1 10^3/uL Immature Granulocyte # (Auto) 0.0 0.0-0.1 10^3/uL Prothrombin Time 13.0 12.2-14.7 SEC INR Comment 1.0 0.8-1.4 Activated Partial Thromboplast Time 26 24-35 SEC D-Dimer 0.35 0.00-0.49 UG/ML Sodium Level 137 135-145 MMOL/L Potassium Level 3.9 3.6-5.0 MMOL/L Chloride Level 102 98-107 MMOL/L Carbon Dioxide Level 22 21-32 MMOL/L Anion Gap 13 5-14 MMOL/L Blood Urea Nitrogen 10 7-18 MG/DL Creatinine 0.61 0.60-1.30 MG/DL Estimat Glomerular Filtration Rate 100 BUN/Creatinine Ratio 16 Glucose Level 116 H 70-105 MG/DL Lactic Acid Level 1.02 0.50-2.00 MMOL/L Calcium Level 9.6 8.5-10.1 MG/DL Corrected Calcium 8.5-10.1 MG/DL Magnesium Level 1.8 1.6-2.4 MG/DL Total Bilirubin 0.3 0.1-1.0 MG/DL Aspartate Amino Transf (AST/SGOT) 16 5-34 U/L Alanine Aminotransferase (ALT/SGPT) 14 0-55 U/L Alkaline Phosphatase 70 40-136 U/L Troponin I < 0.30 <0.30 NG/ML Pro-B-Type Natriuretic Peptide 26.9 <75.0 PG/ML Total Protein 7.4 6.4-8.2 GM/DL Albumin 4.9 H 3.2-4.5 GM/DL Lipase 23 8-78 U/L Serum Alcohol < 10 <10 MG/DL Urine Color YELLOW Urine Clarity CLEAR Urine pH 7.0 5-9 Urine Specific Poll[place] 1.010 L 1.016-1.022 Urine Protein NEGATIVE NEGATIVE Urine Glucose (UA) NEGATIVE NEGATIVE Urine Ketones NEGATIVE NEGATIVE Urine Nitrite NEGATIVE NEGATIVE Urine Bilirubin NEGATIVE NEGATIVE Urine Urobilinogen 0.2 < = 1.0 MG/DL Urine Leukocyte Esterase NEGATIVE NEGATIVE Urine RBC (Auto) 1+ H NEGATIVE Urine RBC 2-5 H /HPF Urine WBC 0-2 /HPF Urine Squamous Epithelial Cells RARE /HPF Urine Renal Epithelial Cells RARE /HPF Urine Crystals NONE /LPF Urine Bacteria TRACE /HPF Urine Casts NONE /LPF Urine Mucus NEGATIVE /LPF Urine Culture Indicated NO Urine Opiates Screen NEGATIVE NEGATIVE Urine Oxycodone Screen NEGATIVE NEGATIVE Urine Methadone Screen NEGATIVE NEGATIVE Urine Propoxyphene Screen NEGATIVE NEGATIVE Urine Barbiturates Screen NEGATIVE NEGATIVE Ur Tricyclic Antidepressants Screen NEGATIVE NEGATIVE Urine Phencyclidine Screen NEGATIVE NEGATIVE Urine Amphetamines Screen NEGATIVE NEGATIVE Urine Methamphetamines Screen NEGATIVE NEGATIVE Urine Benzodiazepines Screen NEGATIVE NEGATIVE Urine Cocaine Screen NEGATIVE NEGATIVE Urine Cannabinoids Screen NEGATIVE NEGATIVE My Orders Orders - QUANG HOANG MD Cbc With Automated Diff (02/16/21 10:36) Magnesium (02/16/21 10:36) Chest 1 View Ap/Pa Only (02/16/21 10:36) Ekg Tracing (02/16/21 10:36) Comprehensive Metabolic Panel (02/16/21 10:36) Protime With Inr (02/16/21 10:36) Partial Thromboplastin Time (02/16/21 10:36) O2 (02/16/21 10:36) Monitor-Rhythm Ecg Trace Only (02/16/21 10:36) Ed Iv/Invasive Line Start (02/16/21 10:36) Lipase (02/16/21 10:36) Fibrin Degradation Products (02/16/21 10:36) Lactic Acid Analyzer (02/16/21 10:36) Alcohol (02/16/21 10:36) Ua Culture If Indicated (02/16/21 10:36) Drug Screen Stat (Urine) (02/16/21 10:36) Probnp Fs (02/16/21 10:36) Troponin I Fs (02/16/21 10:36) Ketorolac Injection (Toradol Injection) (02/16/21 13:08) Vital Signs/I&O 02/16/21 02/16/21 10:21 13:15 Temp 36.4 Pulse 127 72 Resp 20 16 B/P (MAP) 199/99 (132) 146/89 Pulse Ox 100 96 O2 Delivery Room Air Room Air Capillary Refill : Progress Note #1: Progress Note Check labs, chest xray, ECG. Advised pt that I did not have testing for black mold or to look for COVID antibody in blood. Pt very anxious and became tearful when talking about her symptoms and worry about having Black Mold or postCOVID infection symptoms. Differential diagnosis includes pneumonia, pulmonary embolus, pheochromocytoma, hepatitis, renal failure, hepatic failure Progress Note #2: Progress Note Chest xray without acute process. ECG sinus rhythm and rate in 70s. Labs all stable without acute significant abnormality of CBC, Chemistry, Cardiac Enzymes, Urine. Drug test all negative as well. D Dimer negative for PE. Will reassure pt and have her check with clinic about follow up and if she wants to have further testing to look into mold or antibodies for Covid. Progress Note #3: Progress Note After review of results with patient and her will prescribe a short course of Xanax to get her through till Friday when she sees Dr. Valdez. Counseled on possible follow-up with cardiology about her labile blood pressure and heart rate. Also counseled about possible GI follow-up early scope to evaluate the frequent diarrhea right after eating especially. ECG Initial ECG Impression Date: Feb 16, 2021 Initial ECG Impression Time: 11:03 Initial ECG Rate: 76 Initial ECG Rhythm: Normal Sinus Initial ECG Comparisson: No Previous ECG Available Comment Normal sinus rhythm with a heart rate of 76 bpm. FL interval [address] elevation. QT interval 358 ms with a QTc interval 403 ms. There is no prior tracing available for comparison. Diagnostic Imaging Diagonstic Imaging: Xray Plain Films/CT/US/NM/MRI: chest Comments [facility] [place] NAME: JOSE G JERRY [facility] REC#: [id number] PT STATUS: REG ER : 1960 PHYSICIAN: QUANG HOANG MD ADMIT DATE: 02/16/21/ER FS Signed Date of Exam:02/16/21 CHEST 1 VIEW AP/PA ONLY INDICATION: Shortness of breath EXAM: Portable chest at 10:42 AM Heart size and pulmonary vascularity are normal. Lungs are clear. There are no effusions or pneumothoraces. IMPRESSION: Negative chest. Dictated by: Dictated on workstation # [id number] Dict: 02/16/21 1116 Trans: 02/16/21 1145 [facility] [id number] Interpreted by: ALBERTO DOOLEY MD Electronically signed by: ALBERTO DOOLEY MD 02/16/21 1145 Reviewed: Reviewed by Me Departure Impression Primary Impression: Shortness of breath Additional Impressions: Palpitations Elevated blood pressure reading Flushing Diarrhea Qualified Codes: R19.7 - Diarrhea, unspecified Disposition: 01 HOME, SELF-CARE Condition: Stable Departure-Patient Inst. Decision time for Depature: 13:09 Referrals: ODILIA VALDEZ MD (PCP/Family) Primary Care Physician Patient Instructions: Palpitations ED, High Blood Pressure ED, Shortness of Breath, Adult ED Add. Discharge Instructions: Continue to stay well hydrated and get plenty of rest. Follow up with clinic to see about any further testing and to ask about testing or treatment for Black Mold or prior Covid infection causing symptoms All discharge instructions reviewed with patient and/or family. Voiced understanding. Scripts Alprazolam (Alprazolam) 0.5 Mg Tablet 0.5 MG PO BID PRN for ANXIETY for 5 Days, #10 TAB 0 Refills Prov: QUANG HOANG MD 02/16/21 QUANG HOANG MD Feb 16, 2021 11:03
[2021-02-16 11:08] LABS: HEMATOCRIT 39 % (35-52); HEMOGLOBIN 13.4 g/dL (11.5-16.0); MEAN CORPUSCULAR HEMOGLOBIN 30 pg (25-34); MEAN CORPUSCULAR HGB CONC 34 g/dL (32-36); MEAN CORPUSCULAR VOLUME 89 fL (80-99); WHITE BLOOD COUNT 5.3 10^3/uL (4.3-11.0)
[2021-02-16 11:09] LABS: BASOPHILS % (AUTO) 0 % (0-10); EOSINOPHILS % (AUTO) 1 % (0-10); LYMPHOCYTES # (AUTO) 1.4 X 10^3 (1.0-4.0); LYMPHOCYTES % (AUTO) 27 % (12-44); MEAN PLATELET VOLUME 9.8 fL (9.0-12.2); MONOCYTES # (AUTO) 0.4 X 10^3 (0.0-1.0); MONOCYTES % (AUTO) 8 % (0-12); NEUTROPHILS # (AUTO) 3.4 X 10^3 (1.8-7.8); NEUTROPHILS % (AUTO) 64 % (42-75); PLATELET COUNT 321 10^3/uL (130-400)
--- NOTE | 2021-02-16 11:18 | Diagnostic Imaging Report ---
INDICATION: Shortness of breath EXAM: Portable chest at 10:42 AM Heart size and pulmonary vascularity are normal. Lungs are clear. There are no effusions or pneumothoraces. IMPRESSION: Negative chest. Dictated by: Dictated on workstation # [id number]
[2021-02-16 11:26] LABS: BACTERIA,URINE TRACE /HPF; BILIRUBIN,URINE NEGATIVE (NEGATIVE); CLARITY,URINE CLEAR; COLOR,URINE YELLOW; GLUCOSE, URINE (UA) NEGATIVE (NEGATIVE); KETONES,URINE NEGATIVE (NEGATIVE); LEUKOCYTE ESTERASE ,URINE NEGATIVE (NEGATIVE); NITRITE,URINE NEGATIVE (NEGATIVE); PROTEIN,URINE NEGATIVE (NEGATIVE); RENAL EPITHELIAL CELLS,URINE RARE /HPF; SQUAMOUS EPITHELIAL CELL,UR RARE /HPF; WBC,URINE 0-2 /HPF
[2021-02-16 11:27] LABS: AMPHETAMINE SCREEN, URINE NEGATIVE (NEGATIVE); BARBITURATE SCREEN URINE NEGATIVE (NEGATIVE); BENZODIAZEPINES SCREEN URINE NEGATIVE (NEGATIVE); CANNABINOID SCREEN, URINE NEGATIVE (NEGATIVE); COCAINE SCREEN URINE NEGATIVE (NEGATIVE); METHADONE STAT NEGATIVE (NEGATIVE); METHAMPHETAMINE SCREEN URINE S NEGATIVE (NEGATIVE); OPIATE SCREEN URINE NEGATIVE (NEGATIVE); OXYCODONE STAT NEGATIVE (NEGATIVE); PROPOXYPHENE STAT NEGATIVE (NEGATIVE); TRICYCLIC ANTIDEPRESSANTS SCRE NEGATIVE (NEGATIVE)
[2021-02-16 11:47] LABS: FIBRIN DEGRADATION PRODUCTS 0.35 UG/ML (0.00-0.49)
[2021-02-16 11:56] LABS: CHLORIDE 102 MMOL/L (98-107); POTASSIUM 3.9 MMOL/L (3.6-5.0); SODIUM 137 MMOL/L (135-145)
[2021-02-16 11:57] LABS: ALANINE AMINOTRANSFERASE 14 U/L (0-55); ALKALINE PHOSPHATASE 70 U/L (40-136); BILIRUBIN,TOTAL 0.3 MG/DL (0.1-1.0); BUN/CREATININE RATIO 16; CALCIUM 9.6 MG/DL (8.5-10.1); CARBON DIOXIDE 22 MMOL/L (21-32); CREATININE SERUM 0.61 MG/DL (0.60-1.30); GFR ESTIMATED 100; GLUCOSE 116 MG/DL (70-105); TOTAL PROTEIN 7.4 GM/DL (6.4-8.2)
[2021-02-16 11:58] LABS: ALBUMIN 4.9 GM/DL (3.2-4.5); LIPASE 23 U/L (8-78)
[2021-02-16 12:06] LABS: MAGNESIUM 1.8 MG/DL (1.6-2.4)
[2021-02-16] MEDS ORDERED: KETOROLAC 30 MG/ML VIAL IVP STA (13:08)
[2021-02-16] MEDS ORDERED: ALPR0.5T7 PO (13:10)
[2021-02-16 13:15] VITALS: BP 146/89
== END 2021-02-16 13:18 | disposition home or self-care (01) ==
LOC: EDUNIT# 10:15 → ER FS 10:17
DX: R06.02 Shortness of breath (principal); R00.2 Palpitations; R03.0 Elevated blood-pressure reading, without diagnosis of hypertension; R19.7 Diarrhea, unspecified; R23.2 Flushing; G89.29 Other chronic pain; M54.9 Dorsalgia, unspecified; F41.9 Anxiety disorder, unspecified; F32.9 Major depressive disorder, single episode, unspecified; Z86.16 Personal history of COVID-19; Z79.891 Long term (current) use of opiate analgesic; Z79.1 Long term (current) use of non-steroidal anti-inflammatories (NSAID); Z79.899 Other long term (current) drug therapy
CPT/HCPCS: 36415; 71045; 80053; 80306; 81000; 83605; 83690; 83735; 83880; 84484; 85025; 85379; 85610; 85730; 93041; 99284; G0480; 80320

== ENCOUNTER → 2023-04-30 | Outpatient (CLI) | payer BC ==
[~2023-04-30] MED LIST changes: +ALPR0.5T7 PO
--- NOTE | 2023-04-30 16:52 | Diagnostic Imaging Report ---
PROCEDURE: MRI lumbar spine. TECHNIQUE: Multiplanar, multisequence MRI of the lumbar spine was performed without contrast. INDICATION: Stenosis, pain. FINDINGS: In keeping with prior convention assuming transitional anatomy, the levels of posterior and interbody fusion are the L3-L4 level with L2 on L3 grade 1 anterolisthesis, unchanged, and a partially sacralized L5 segment with a rudimentary L5-S1 disc. Assuming this level assignment, compression deformity of the superior endplate of T11 is nonedematous and stable from prior. The lower thoracic cord and conus appear unremarkable. T12-L1: This level and disc are unremarkable. No stenosis. L1-L2: Disc bulge and endplate osteophytes with facet arthrosis and thickened ligamenta flava result in stable mild canal and mild left foraminal stenosis. L2-L3: Bulky facet arthrosis, thickened ligamenta flava, disc bulge, grade 1 anterolisthesis, and endplate osteophytes result in severe canal stenosis with severe right lateral recess stenosis. There is moderate right and moderate to severe left foraminal narrowing, unchanged. L3-L4: The canal is decompressed by laminectomy. The fusion appears solid and aligned anatomically. There is no substantial canal stenosis or significant foraminal narrowing. L5-S1: Disc desiccation, bulge, and facet arthrosis result in mild canal stenosis. There are moderate bilateral lateral recess stenoses. There is severe right and moderate left foraminal narrowing. IMPRESSION: Transitional anatomy with stable L3-L4 fusion and laminectomy decompression with L2 on L3 grade 1 degenerative listhesis, unchanged. Substantial degrees of multilevel spinal canal, neuroforaminal, and lateral recess stenoses are unchanged from prior. No fluid collection or acute bony abnormality. Dictated by: Dictated on workstation # [id number]
== END ==
LOC: RAD 13:14
PROVIDERS: ATTEND Registered Nurse
DX: M43.16 Spondylolisthesis, lumbar region (principal); M48.061 Spinal stenosis, lumbar region without neurogenic claudication; Z98.1 Arthrodesis status
CPT/HCPCS: 72148